=== PATIENT | male | born 1965 | race Caucasian/White ===

== ENCOUNTER 2025-07-22 18:13 | Outpatient (CLI) | payer OTHER, SELFPAY | END 2025-07-22 18:14 | disposition home or self-care (01) | LOC: AMB 08-21 15:29 | PROVIDERS: Visit Provider Student in an Organized Health Care Education/Training Program | DX: T14.90XA Injury, unspecified, initial encounter (principal); V48.0XXA Car driver injured in noncollision transport accident in nontraffic accident, initial encounter; Y92.410 Unspecified street and highway as the place of occurrence of the external cause | CPT/HCPCS: A0998 ==

== ENCOUNTER 2025-07-22 18:57 | Emergency (ER) | payer OTHER, SELFPAY ==
[2025-07-22] VITALS (9 sets, daily range): BP systolic 145–165; BP diastolic 83–95; PULSE 56–71; RESP 8–35; TEMP 37.1; O2SAT 98–100; BMI 25.5
--- OUTSIDE RECORDS SUMMARY | 2025-07-22 18:59 | XMS_ITS | Clinical Summary ---
Author Organization [facility] Address [address] [place] [address] Care Team Providers Care Human Resources Project Manager Name Role Phone Kennedy Young MD Primary Care Provider [phone] Allergies No known active allergies Medications NASONEX 50 MCG/ACTUATION SPRAY inhale 2 sprays in each nostril by intranasal route once daily 17 4 7 Active MULTIVITAMIN TAB take 1 tablet by oral route once daily with food 0 8 Active mometasone, 50 mcg each actuation, nasal (NASONEX) 50 mcg/actuation nasal sprayIndication s:Environmental allergies Inhale 2 Sprays into both nostrils once daily. 1 canister 12 2 Active CPAPIndications :Unspecified sleep apnea CPAP, heated humidifier, mask, headgear, filters and tubing. For home use. Pressure: 11.8 cm water; pressure 4/20 Length of Need: 99 1 unit 0 4 Active Active Problems Problem Noted Date Diagnosed Date Anxiety state, unspecified 03/02/2007 Unspecified sleep apnea 03/02/2007 Immunizations Immunization Administration Dates Next Due Td (Age >=7 Years) 03/02/1991 Family History Medical History Relation Name Comments Cancer Mother of met chris murcia ca at 67 Relation Name Status Comments Mother Social History Tobacco Use Types Packs/Day Years Used Date Smoking Tobacco: Former Cigarettes Q uit: 09/20/1998 Smokeless Tobacco: Never Alcohol Use Standard Drinks/Week Comments Yes 17.5 (1 standard drink = 0.6 oz pure alcohol) occ Sex and Gender Information Value Date Recorded Sex Assigned at Not on file Legal Sex Male 6:39 AM [employer] Gender Identity Not on file Sexual Orientation Not on file Obstetrics History Last Filed Vital Signs Vital Sign Reading Time Taken Comments Blood Pressure 132/81 01/22/2012 1:51 PM CDT Pulse 77 01/22/2012 1:51 PM CDT Temperature 36.5 C (97.7 F) 01/22/2012 1:51 PM CDT Respiratory Rate - - Oxygen Saturation 96% 01/22/2012 1:51 PM CDT Inhaled Oxygen Concentration - - Weight 97.4 kg (214 lb 12.8 oz) 01/22/2012 1:51 PM CDT Height 180.3 cm (5' 11) 01/22/2012 1:51 PM CDT Body Mass Index 29.96 01/22/2012 1:51 PM CDT Plan of Treatment Health Maintenance Due Date Last Done Comments Depression screening for age 12+ 1977 HIV for age 15-65 02/06/1980 BMI (ht and wt on same day) for age 18+ 1983 Hepatitis C screening for ag e 18-79 1983 Tetanus booster 03/02/2001 03/02/1991 Colonoscopy through age 75 2010 Lipids for age 45-75 2010 Pneumococcal series for age 50+ (1 of 1 - PCV) 2015 Zoster (shingles) series for age 50+ (1 of 2) 2015 Influenza Vaccine (#1) 2025 RSV vaccine for adults or (1 - 1-dose 75+ series) 02/06/2040 Hepatitis B series for 19+ Aged Out N o longer eligible based on patient's age to complete this topic Care Teams Human Resources Project Manager Relationship Specialty Start Date End Date Kennedy Young [place] [address] PCP - General 10/25/06
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
[2025-07-22 19:25] LABS: Hematocrit* 41.8 % (37.0-53.0); Hemoglobin* 14.8 gm/dL (13.5-17.5); Immature Granulocytes Abs Auto 0.02 K/uL (0.00-0.30); Immature Granulocytes Pct Auto 0.3 %; Lymphocytes Absolute Auto 1.78 K/uL (0.90-2.90); Mean Corpuscular HGB Conc 35 gm/dL (32-36); Mean Corpuscular Hemoglobin 31 pg (26-34); Mean Corpuscular Volume 89 fL (80-100); RDW Coefficient of Variation % 12.0 % (11.5-15.5); Red Blood Count* 4.71 m/uL (4.30-5.90); White Blood Count* 7.62 K/uL (4.50-11.00)
[2025-07-22 19:31] LABS: Slide Review Reflex No
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
[2025-07-22 19:45] LABS: Albumin* 4.1 g/dL (3.3-5.0); Chloride* 105 mmol/L (96-114); Potassium* 3.5 mmol/L (3.6-5.1); Sodium* 137 mmol/L (135-149)
[2025-07-22 19:48] LABS: Alanine Aminotransferase* 28 U/L (4-50); Alkaline Phosphatase* 67 U/L (40-150); Anion Gap 5 mEq/L (7-15); Aspartate Amino Transferase* 29 U/L (12-35); Bilirubin Direct* 0.3 mg/dL (0.0-0.5); Bilirubin Total* 0.8 mg/dL (0.1-1.5); Blood Urea Nitrogen* 20 mg/dL (7-30); Carbon Dioxide* 27 mmol/L (20-32); Creatinine* 1.1 mg/dL (0.5-1.5); Est. Creatinine Clearance* 76.06; Estimated Glomerular Filt Rate 77 ml/min; Total Protein* 6.8 g/dL (6.0-8.3)
[2025-07-22 19:49] LABS: Calcium* 8.9 mg/dL (8.4-10.6); Glucose* 98 mg/dL (60-115)
[2025-07-22 20:26] LABS: Appearance Urine Clear (Clear)
== END 2025-07-22 20:59 | disposition home or self-care (01) ==
PROVIDERS: Emergency Provider Family Medicine
DX: M54.6 Pain in thoracic spine (principal); V49.3XXA Car occupant (driver) (passenger) injured in unspecified nontraffic accident, initial encounter
CPT/HCPCS: 36415; 70450; 72125; 80048; 80076; 81001; 85025; 93005; 94761; 99285; 99291